=== PATIENT | female | born 2000 | race Caucasian/White ===

== ENCOUNTER 2020-08-27 12:32 | Emergency (ER) | payer OTHER ==
[~2020-08-27] VITALS: Ht 182.9 cm; Wt 131.0 kg
[2020-08-27 12:39] VITALS: BP 141/54
--- NOTE | 2020-08-27 12:48 | NUR ---
PATIENT HAS A BLOODY NOSE LEFT NARE. SHE SNEEZED THIS MORNING AND ITS BEEN BLEEDING SINCE. NO MEDICATIONS.
[2020-08-27] MEDS ORDERED: LIDOCAINE 1%-EPI 1:100K, 20ML INFIL ONE (13:30)
[2020-08-27] MEDS ORDERED: OXYMETAZOLINE NASAL SPRAY 0.05%, 15ML NAS ONE (13:30)
[2020-08-27] MEDS ORDERED: OXYMETAZOLINE NASAL SPRAY 0.05%,30ML ONE (13:42)
[2020-08-27] MEDS ORDERED: LIDOCAINE 1%-EPI 1:100K, 20ML ONE (13:42)
--- NOTE | 2020-08-27 14:29 | NUR ---
dc instructions reviewed
== END 2020-08-27 14:32 | disposition home or self-care (01) ==
LOC: ED 13:00
DX: R04.0 Epistaxis (principal)
CPT/HCPCS: 99282